=== PATIENT | male | born 1995 | race Caucasian/White ===

== ENCOUNTER 2021-10-07 14:50 | Emergency (ER) | payer OTHER, SELFPAY ==
--- NOTE | ~2021-10-07 | XR_ITS ---
EXAMINATION: LEFT KNEE AND RIGHT HAND X-RAYS CLINICAL INFORMATION: Pain post trauma COMPARISON: None TECHNIQUE: 3 views of the right hand and 4 views of the left knee FINDINGS: Left knee: Bone alignment is normal. No fracture or dislocation is seen. Joint spaces are normal. There is a small joint effusion. Right hand: Bone alignment is normal. There is a fracture of the fifth metacarpal head that is probably old. Clinical correlation recommended. No other fracture seen. Joint spaces are normal. Soft tissues are normal. XR/XR hand RT 2V IMPRESSION: Left knee: Unremarkable exam. Right hand: Fracture of the fifth metacarpal head, question old. Clinical correlation recommended.
--- NOTE | ~2021-10-07 | XR_ITS ---
EXAMINATION: LEFT KNEE AND RIGHT HAND X-RAYS CLINICAL INFORMATION: Pain post trauma COMPARISON: None TECHNIQUE: 3 views of the right hand and 4 views of the left knee FINDINGS: Left knee: Bone alignment is normal. No fracture or dislocation is seen. Joint spaces are normal. There is a small joint effusion. Right hand: Bone alignment is normal. There is a fracture of the fifth metacarpal head that is probably old. Clinical correlation recommended. No other fracture seen. Joint spaces are normal. Soft tissues are normal. XR/XR knee LT 3V IMPRESSION: Left knee: Unremarkable exam. Right hand: Fracture of the fifth metacarpal head, question old. Clinical correlation recommended.
[2021-10-07 15:05] VITALS: BP 143/88; PULSE 103; RESP 18; TEMP 36.8; O2SAT 96
[2021-10-07 15:07] VITALS: BP 143/88; PULSE 84; RESP 18; TEMP 36.1; O2SAT 98; BMI 28.5
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
== END 2021-10-07 16:19 | disposition home or self-care (01) ==
PROVIDERS: Emergency Provider Emergency Medicine
DX: S62.396A Other fracture of fifth metacarpal bone, right hand, initial encounter for closed fracture (principal); S83.92XA Sprain of unspecified site of left knee, initial encounter; Y04.2XXA Assault by strike against or bumped into by another person, initial encounter; Y93.89 Activity, other specified; Y92.9 Unspecified place or not applicable; Y99.9 Unspecified external cause status
CPT/HCPCS: 29125; 73120; 73562; 99283; 99284

== ENCOUNTER → 2021-10-18 10:52 | Outpatient (BNVA) | payer OTHER, SELFPAY | PROVIDERS: Visit Provider Physician Assistant | DX: S62.23 Other fracture of base of first metacarpal bone (principal) | CPT/HCPCS: 99202 ==

== ENCOUNTER 2021-11-08 08:00 | Outpatient (REF) | payer OTHER, SELFPAY | END 2021-11-08 08:01 | disposition home or self-care (01) | LOC: HO.HOSX 08:00 | PROVIDERS: Visit Provider Physician Assistant | DX: Z13.89 Encounter for screening for other disorder (principal) ==

== ENCOUNTER 2025-07-16 17:48 | Emergency (ER) | payer BC, SELFPAY ==
[2025-07-16 18:06] VITALS: BP 160/112; PULSE 97; RESP 20; TEMP 36.9; O2SAT 97; BMI 24.7
--- NOTE | 2025-07-16 18:14 | ED.GENADULT ---
HPI - General Adult General Chief complaint: Abdominal Pain Stated complaint: Stomach Pain Time Seen by Provider: 07/16/25 19:27 History of Present Illness ED Provider: Mani Emanuel MD HPI narrative: Author / Clinician: Mani Emanuel MD (Emergency Medicine) Chief Complaint Right-sided upper abdominal pain; dark urine. History of Present Illness The patient presents with a history of right upper quadrant abdominal pain that began ?randomly.? Initially the patient attributed the pain to lifting boxes. Approximately three months ago, while coughing forcefully, the patient experienced a sudden episode marked by: a sharp pain in the back of the neck, bilateral hand contractures (fists clenched to the point that the fingernails dug into the opposite palms, with nails digging into the skin of the other hand), inability to speak during the event, but no loss of consciousness. No abdominal pain was noted during that acute episode; however, abdominal pain progressively worsened afterward. The abdominal pain has since resolved. The patient reports persistent thirst and drinks ?ridiculous? amounts of water, yet urine remains ?super dark.? The patient denies any prior surgeries. Alcohol intake: daily liquor consumption, estimated up to ~1 liter/day. No history of gallstones noted on current evaluation. The provider noted mildly elevated liver enzymes and findings suggestive of hepatic steatosis (?fatty liver disease?) but no evidence of cirrhosis. The patient was informed that kidneys appear normal and no clinical jaundice was observed. Review of Systems - Constitutional: Persistent thirst. - Gastrointestinal: History of right upper quadrant pain, currently resolved; no report of nausea or vomiting discussed. - Genitourinary: Dark-colored urine despite high fluid intake. - Neurologic/Musculoskeletal: Prior episode of neck pain and bilateral hand contractures; no loss of consciousness reported. - Skin: Fingernail javier noted on prior episode (patient report, nails dug into the skin of the other hand during episode); no yellowing of skin/eyes per provider observation. Physical Exam: - General: Patient awake and alert, conversational. - Skin/Eyes: No clinical jaundice appreciated. Emergency Department Course Laboratory results reviewed with the patient revealed mildly elevated liver enzymes; renal function within normal limits. Imaging review (modality not specified) showed no gallstones and findings consistent with hepatic steatosis. Addiction services availability was discussed; patient expressed interest in pursuing assistance through employer-sponsored resources. Assessment & Plan Diagnosis: - Right upper quadrant abdominal pain ? resolved. - Polydipsia with dark urine of unclear etiology. - Alcohol use (daily liquor intake). - History of episodic hand contractures and neck pain (resolved). Plan: - Discussed laboratory and imaging findings with the patient; no gallstones, kidneys normal, mild elevation of liver enzymes suggestive of fatty liver. - Counseled on risks of heavy alcohol use; addiction services offered. Patient plans to seek employer-sponsored treatment program. Disposition Related Data Previous Rx's ?Medication ?Instructions ?Recorded omeprazole 20 mg capsule,delayed 20 mg PO DAILY #30 caps 07/16/25 release potassium chloride 20 mEq oral 20 meq PO DAILY 2 days #2 ea 07/16/25 packet Allergies Allergy/AdvReac Type Severity Reaction Status Date / Time No Known Allergies Allergy Verified 07/16/25 18:11 [facility] Past Medical History Medical History Asthma Social History Social History Alcohol intake: never Smoked in Last 30 Days: Yes Use of substances other than those prescribed or required for medical reasons: No Advance Directives: No Advance Directives Information Provided: No Physical Exam ED Vital Signs: Vital Signs - 24 hr 07/16/25 18:06 07/16/25 21:51 07/17/25 04:40 Temperature 98.5 F Pulse Rate 97 105 H 95 Respiratory Rate 20 18 15 Blood Pressure 160/112 H 131/84 127/75 Pulse Oximetry 97 96 99 Oxygen Delivery Method Room Air Room Air Room Air 07/17/25 08:00 07/17/25 08:36 07/17/25 09:21 Temperature 98.3 F 98.5 F 98.5 F Pulse Rate 76 90 90 Respiratory Rate 16 18 18 Blood Pressure 131/75 128/80 128/80 Pulse Oximetry 98 96 96 Oxygen Delivery Method Room Air Room Air Room Air BMI result Body Mass Index 24.7 Course Course Course Narrative: Rapid medical examination performed in triage by Reena Bills PA-C: Patient is a 30 year old assigned male at presenting to the emergency department with abdominal pain, nausea, vomiting, and feeling generally unwell. Detailed physical exam and review of systems are deferred to the business integration analyst. Labs ordered. Patient placed back in the waiting room pending room availability and results. Reevaluation(s) Reevaluation #1: Patient is waiting care team evaluation vital signs stable as 04:40 patient has been medically cleared by the prior provider Time: 06:57 Reevaluation #2: Patient was seen by crisis patient does not want to go to detox right now, he declined detox, he has no SI no HI his vitals are stable as 830 in the morning normotensive heart rate is 90 at this point we will discharge the patient home Time: 09:06 Medications Administered Discontinued Medications Generic Name Dose Route Start Last Admin Trade Name Freq PRN Reason Stop Dose Admin Omeprazole 20 mg 07/16/25 20:03 07/16/25 20:39 Omeprazole 20 Mg Capsule.Dr PO 07/16/25 20:04 20 mg ONCE ONE Administration Potassium Chloride 40 meq 07/16/25 20:04 07/16/25 20:38 Potassium Chloride Packet 20 Meq Packet PO 07/16/25 20:05 40 meq ONCE ONE Administration Procedures Procedure Narrative Procedure Narrative: EMERGENCY ULTRASOUND INTERPRETATION- Limited Point of Care Biliary [This study was ordered, performed, and interpreted by myself. The study reveals: Impression: NO EVIDENCE OF ACUTE INFLAMMATION OF THE GALLBLADDER, NO EVIDENCE OF OBSTRUCTIVE BILIARY DISEASE] [Indication: RUQ PAIN Gallbladder: NO WALL THICKENING > 4MM, NO PERICHOLECYSTIC FLUID, NOT GROSSLY DILATED/HYDROPIC. -Additional: WALL MEASUREMENT: CBD MEASURMENT IF OBTAINED: Performed by: Mani Emanuel MD Images were stored CPT:13877] Medical Decision Making Medical Decision Making MDM Narrative: [age] male with heavy alcohol use, polydipsia upper abdominal discomfort. No evidence of acute biliary pathology on ultrasound see report. Lab work generally reassuring with mild transaminitis probably secondary to alcohol use. Offered addiction services he initially declined but later accepted. We will board patient overnight for care team evaluation Lab Data 07/16/25 18:22 07/16/25 18:22 Labs: Lab Results 07/16/25 Range/Units 18: WBC 8.8 (4.8-10.8) X10*3/uL RBC 4.97 (4.60-5.80) X10*6/uL Hgb 16.1 (14.0-18.0) g/dl Hct 44.3 (42.0-52.0) % MCV 89.1 (80.0-98.0) fL MCH 32.4 (27.0-33.0) pg MCHC 36.3 H (31.0-36.0) g/dl RDW 12.3 (11.0-16.0) % Plt Count 125 L (160-400) X10*3/uL MPV 12.1 (9.4-12.4) fL Immature Gran % (Auto) 0.3 (0.0-0.4) % Neut % (Auto) 70.9 (45-73) % Lymph % (Auto) 15.3 L (20-40) % [place] % (Auto) 12.5 H (2-11) % Eos % (Auto) 0.3 (0-4) % Baso % (Auto) 0.7 (0-2) % Lymph # (Auto) 1.4 (1.2-4.9) X10*3/uL [place] # (Auto) 1.1 (0.1-1.2) X10*3/uL Eos # (Auto) 0.0 (0.0-0.4) X10*3/uL Baso # (Auto) 0.1 (0.0-0.2) X10*3/uL Abs Immat Gran (auto) 0.03 (0.00-0.03) X10*3/uL Absolute Neuts (auto) 6.2 (2.0-8.3) x10*3/uL Absolute Nucleated RBC 0.000 (0.0-0.012) X10*3/uL Nucleated RBC % (auto) 0.0 (0.0-0.2) /100WBC Sodium 134 L (135-145) mmol/L Potassium 3.2 L (3.3-5.1) mmol/L Chloride 87 L (96-108) mmol/L Carbon Dioxide 32 H (22-29) mmol/L Anion Gap 18 (12-20) BUN 16 (9-16) mg/dL Creatinine 0.69 (0.5-1.4) mg/dL Estim Creat Clear Calc 174.9 Estimated GFR > 60 Random Glucose 112 (60-115) mg/dL Calcium 10.2 (8.4-10.2) mg/dL Magnesium 1.6 (1.6-2.6) mg/dL Total Bilirubin 1.5 H (0.0-1.0) mg/dL AST 547 H (5-37) U/L ALT 519 H (0-40) U/L Alkaline Phosphatase 100 (39-117) U/L Total Protein 8.8 H (6.5-8.0) g/dL Albumin 5.2 H (3.5-5.0) g/dL Lipase 31 (8-78) U/L Ethyl Alcohol 107 mg/dL Discharge Plan Discharge Clinical Impression: Acute alcoholic hepatitis, Alcohol abuse, Hypokalemia Patient Disposition: Home, Self-Care Instructions: Abuse of Alcohol (ED), Alcoholic Hepatitis (ED) Additional Instructions: DISCHARGE DIAGNOSES: Fatty liver disease, alcohol use disorder, likely alcoholic hepatitis, Abdominal pain: Possibly due to hepatitis or peptic ulcer disease or gastritis from alcohol drinking Hypokalemia low potassium HISTORY OF PRESENTATION: ?Abdominal pain EMERGENCY DEPARTMENT COURSE,TESTS, TREATMENTS: While in the ED today you had lab work which showed elevated liver enzymes and bilirubin likely making your urine dark. We feel this is likely from your alcohol drinking. Your potassium was slightly low at 3.2 it should be at least 3.5. For this reason we are starting antacid medicine and potassium supplementation we offered you detox in addiction services which you declined at this time but you can return at anytime DISCHARGE MEDICATIONS: ?Potassium supplements and omeprazole FOLLOW-UP: ?Call your primary or general physician soon as possible to discuss your symptoms, your ED visit and to discuss follow up plans PCP follow up and/or GI follow up INSTRUCTIONS ?& RETURN PRECAUTIONS: If any symptoms change first call your primary physician, if it is after-hours your primary doctors office should have a provider vocational nurse you can speak with. If the symptoms are severe or very concerning to you then call 911 or return to the ED. Return for worsening symptoms Mani Emanuel MD Emergency Physician [facility] Prescriptions: New potassium chloride 20 mEq packet 20 meq PO DAILY 2 Days Qty: 2 0RF omeprazole 20 mg capsule,delayed release(DR/EC) 20 mg PO DAILY Qty: 30 0RF Referrals: Physician,None [Primary Care Provider, Medical] - 07/26/25 Stand Alone Forms: Work/School Release Interventions: ED Discharge Assessment Last Done: 07/17/25 09:21 Discharge Date/Time: 07/17/25 09:22 Print Language: Spanish
[2025-07-16 18:39] LABS: MANUAL DIFF FLAG NO
[2025-07-16 18:42] LABS: Hematocrit 44.3 % (42.0-52.0); Hemoglobin 16.1 g/dl (14.0-18.0); Imm Gran Abs Auto 0.03 X10*3/uL (0.00-0.03); Imm Gran Pct Auto 0.3 % (0.0-0.4); Lymphocytes Absolute Auto 1.4 X10*3/uL (1.2-4.9); Mean Corpuscular HGB Conc 36.3 g/dl (31.0-36.0); Mean Corpuscular Hemoglobin 32.4 pg (27.0-33.0); Mean Corpuscular Volume 89.1 fL (80.0-98.0); NRBC Abs Auto 0.000 X10*3/uL (0.0-0.012); NRBC Pct Auto 0.0 /100WBC (0.0-0.2); Platelet Count 125 X10*3/uL (160-400); Red Blood Count 4.97 X10*6/uL (4.60-5.80); White Blood Count 8.8 X10*3/uL (4.8-10.8)
[2025-07-16 18:59] LABS: Alanine Aminotransferase 519 U/L (0-40); Albumin Level 5.2 g/dL (3.5-5.0); Alkaline Phosphatase 100 U/L (39-117); Anion Gap 18 (12-20); Aspartate Amino Transferase 547 U/L (5-37); Blood Urea Nitrogen 16 mg/dL (9-16); Calcium 10.2 mg/dL (8.4-10.2); Carbon Dioxide 32 mmol/L (22-29); Chloride 87 mmol/L (96-108); Creatinine Clr Calc Pharmacy 174.9; Estimated Glomerular Filt Rate > 60; Lipase 31 U/L (8-78); Magnesium 1.6 mg/dL (1.6-2.6); Potassium 3.2 mmol/L (3.3-5.1); Sodium 134 mmol/L (135-145); Total Protein 8.8 g/dL (6.5-8.0)
--- NOTE | 2025-07-16 19:39 | PC.NURSE ---
Assumed care of pt, c/o RUQ abd pain radiates across the abd pt states about a month ago pt was dry heaving and states that his hand were cramping up, endorses that this happens multiple times week, nausea/vomiting/diarrhea, aaox4,
[2025-07-16] MEDS: Potassium Chloride Packet 20 MEQ PACKET 40 MEQ PO (20:38)
[2025-07-16 21:51] VITALS: BP 131/84; PULSE 105; RESP 18; O2SAT 96
[2025-07-17 04:40] VITALS: BP 127/75; PULSE 95; RESP 15; O2SAT 99
[2025-07-17 08:00] VITALS: BP 131/75; PULSE 76; RESP 16; TEMP 36.8; O2SAT 98
[2025-07-17 08:36] VITALS: BP 128/80; PULSE 90; RESP 18; TEMP 36.9; O2SAT 96
--- NOTE | 2025-07-17 08:49 | MHC.EDTECH ---
T/W had Tyrese from [employer] complete a safety search due to patient seeking detox, patient was cooperative and is resting quietly at this time.RN aware
--- NOTE | 2025-07-17 09:12 | MHC.CARE ---
Pt declined a detox referral as he wants to go through his work union and was unable to obtain the info today. Pt will D/C
[2025-07-17 09:21] VITALS: BP 128/80; PULSE 90; RESP 18; TEMP 36.9; O2SAT 96
== END 2025-07-17 09:22 | disposition home or self-care (01) ==
PROVIDERS: Physician Assistant Medical; Emergency Provider Emergency Medicine
DX: K70.10 Alcoholic hepatitis without ascites (principal); R10.11 Right upper quadrant pain; F10.10 Alcohol abuse, uncomplicated; Y90.5 Blood alcohol level of 100-119 mg/100 ml; E87.6 Hypokalemia; Z51.81 Encounter for therapeutic drug level monitoring; Z79.899 Other long term (current) drug therapy
CPT/HCPCS: 36415; 76705; 80053; 80307; 83690; 83735; 85025; 99284; S9485